=== PATIENT | female | born 1985 | race Caucasian/White ===

== ENCOUNTER 2018-01-09 10:18 | Emergency (ER) | payer SELFPAY ==
[2018-01-09] MEDS ORDERED: PREDNISONE 20 MG TABLET PO ONE (11:12)
[2018-01-09] MEDS ORDERED: ACYCLOVIR 800 MG TABLET PO ONE (11:12)
--- NOTE | 2018-01-09 11:15 | ER Document Report ---
ED General - General Chief Complaint: Skin Problem Stated Complaint: RASH Time Seen by Provider: 01/09/18 10:45 TRAVEL OUTSIDE OF THE [place] IN LAST 30 DAYS: No - HPI Patient complains to provider of: Skin rash Notes: Patient coming in for evaluation of skin rash to the left side of her face. Patient states this is occurred before he was diagnosed with herpes. Patient states that his rash is worse than the original outbreak states that it was exacerbated after being in the sun patient states normally occurs when she is stressed or when she has a significant sun exposure. Patient denies any fevers chills nausea vomiting blurry vision diarrhea fevers chills. - Related Data Allergies/Adverse Reactions: No Known Drug Allergies Allergy (Verified 12/11/12 00:53) Past Medical History - Social History Smoking Status: Current Every Day Smoker Chew tobacco use (# tins/day): No Frequency of alcohol use: None Drug Abuse: None Family History: Reviewed & Not Pertinent Patient has suicidal ideation: No Patient has homicidal ideation: No Renal/ Medical History: Denies: Hx Peritoneal Dialysis Review of Systems - Review of Systems Constitutional: No symptoms reported EENT: Other - Rash to the face Cardiovascular: No symptoms reported Respiratory: No symptoms reported Gastrointestinal: No symptoms reported Genitourinary: No symptoms reported Female Genitourinary: No symptoms reported Musculoskeletal: No symptoms reported Skin: No symptoms reported Hematologic/Lymphatic: No symptoms reported Neurological/Psychological: No symptoms reported -: Yes All other systems reviewed and negative Physical Exam - Vital signs Vitals: Temp Pulse Resp BP Pulse Ox 98.4 F 90 20 113/72 97 01/09/18 10:23 01/09/18 10:23 01/09/18 10:23 01/09/18 10:23 01/09/18 10:23 Interpretation: Normal - General General appearance: Appears well, Alert - HEENT Head: Normocephalic, Atraumatic, Other - Patient with a vesicular rash that starts at the corner mouth and does go to the zygomatic arch consistent with shingles. Eyes: Normal Conjunctiva: Normal Cornea: Normal Extraocular movements intact: Yes Eyelashes: Normal Pupils: PERRL Ears: Normal External canal: Normal Tympanic membrane: Normal Nasal: Normal Pharynx: Normal Neck: Normal - Respiratory Respiratory status: No respiratory distress Chest status: Nontender Breath sounds: Normal Chest palpation: Normal - Cardiovascular Rhythm: Regular Heart sounds: Normal auscultation Murmur: No - Abdominal Inspection: Normal Distension: No distension Bowel sounds: Normal Tenderness: Nontender Organomegaly: No organomegaly - Back Back: Normal, Nontender - Extremities General upper extremity: Normal inspection, Nontender, Normal color, Normal ROM , Normal temperature General lower extremity: Normal inspection, Nontender, Normal color, Normal ROM , Normal temperature, Normal weight bearing. No: Elvin's sign - Neurological Neuro grossly intact: Yes Cognition: Normal Orientation: AAOx4 Emanuel Coma Scale Eye Opening: Spontaneous Alleman Coma Scale Verbal: Oriented Emanuel Coma Scale Motor: Obeys Commands Emanuel Coma Scale Total: 15 Speech: Normal Motor strength normal: LUE, RUE, LLE, RLE Sensory: Normal - Psychological Associated symptoms: Normal affect, Normal mood - Skin Skin Temperature: Warm Skin Moisture: Dry Skin Color: Normal Course - Re-evaluation Re-evalutation: 01/09/18 15:10 Patient was to have shingles on her face with no signs of involvement of the nose or of the ophthalmic branch. Patient will be started on antiviral steroids did offer the patient Neurontin for pain. Patient otherwise will be discharged home information for the patient to be followed by case management was given. - Vital Signs Vital signs: Temp Pulse Resp BP Pulse Ox 98.4 F 82 16 110/75 100 01/09/18 11:29 01/09/18 11:29 01/09/18 11:29 01/09/18 11:29 01/09/18 11:29 Discharge - Discharge Clinical Impression: Shingles Qualifiers: Herpes zoster complications: without complications Qualified Code(s): B02.9 - Zoster without complications Condition: Good Disposition: HOME, SELF-CARE Instructions: Shingles ([facility]) Additional Instructions: Evaluation today she is a rash in his face that looks to be consistent with shingles. Shingles is a rashes due to infection of the nerve by a virus that causes chickenpox. Please take medication as prescribed return to ER symptoms worsen. We recommend that she follow-up with the clinic provided I will give her information to our geriatric social worker team to the can call you and make sure that you are improving to try to establish follow-up Prescriptions: Acyclovir [Acyclovir 400 mg Tablet] 800 mg PO 5XD 7 Days tablet Gabapentin [Neurontin 300 mg Capsule] 300 mg PO Q12 #60 capsule Prednisone [Deltasone] 60 mg PO DAILY #24 tablet Forms: Return to Work
[2018-01-09] MEDS ORDERED: PREDNISONE 20 MG TABLET ONE (11:34)
[2018-01-09 11:37] VITALS: BP 110/75
== END 2018-01-09 11:37 | disposition home or self-care (01) ==
LOC: ER 10:18
DX: B02.9 Zoster without complications (principal); F17.200 Nicotine dependence, unspecified, uncomplicated
CPT/HCPCS: 99283; J7512; J3490